=== PATIENT | female | born 1965 | race Caucasian/White ===

== ENCOUNTER → 2016-09-17 | Outpatient (CLI) | payer BC ==
[~2016-09-17] MED LIST: MAGN250T8 PO; PRDFOPS; TRAZ50TA35 PO
--- NOTE | 2016-09-17 08:30 | DIAGNOSTIC IMAGING REPORT ---
RIGHT FOOT MIN 3 VIEWS ROUTINE CLINICAL HISTORY: Puncture wound. FOOT PAIN COMPARISON: None. DISCUSSION: The bony mineralization appears normal. No fractures or dislocations are visualized. No radiopaque foreign bodies are evident. There are no erosive or destructive changes. IMPRESSION: No evidence of fracture. No foreign bodies identified. Electronically signed by: Cristhian Norris M.D. 09/17/2016 8:28 AM Dictated Date/Time: 09/17/2016 8:27 AM
== END | disposition home or self-care (01) ==
LOC: C.RAD 08:04
PROVIDERS: ATTEND Family Medicine
DX: S91.331A Puncture wound without foreign body, right foot, initial encounter (principal); W22.8XXA Striking against or struck by other objects, initial encounter; Y92.89 Other specified places as the place of occurrence of the external cause